=== PATIENT | male | born 1975 | race Hispanic/Latino ===

== ENCOUNTER 2019-03-31 21:35 | Emergency (ER) | payer SELFPAY ==
[~2019-03-31] VITALS: Ht 175.3 cm; Wt 74.8 kg
[~2019-03-31 21:35] MED LIST: IMITREX25 MG PO; OMEPRAZOLE40 MG PO; Z IMITREX
--- OUTSIDE RECORDS SUMMARY | 2019-03-31 21:38 | XMS REPORT ---
[facility] Address Unknown Phone Unavailable Care Team Providers Care Religious Education Director Name Role Phone Unavailable Unavailable Payers Payer Name Policy Type Policy Number Effective Date Expiration Date Problems This patient has no known problems. Allergies, Adverse Reactions, Alerts Allergy Name Allergy Type Status Severity Reaction(s) Onset Date Inactive Date Treating Clinician Comments No Known Allergies DA Active U 2017-07-29 00:00:00 Medications This patient has no known medications. Results Test Description Test Time Test Comments Text Results Atomic Results Result Comments URINALYSIS COMPLETE 2019-02-25 17:40:00 UA COLOR (test code=COLU) YELLOW YELLOW UA APPEARANCE (test code=APPU) CLEAR CLEAR UA GLUCOSE DIPSTICK (test code=DGLUU) norm mg/dL NEGATIVE UA BILIRUBIN DIPSTICK (test code=BILU) NEGATIVE mg/dL NEGATIVE UA KETONE DIPSTICK (test code=KETU) neg mg/dL NEGATIVE UA SPECIFIC GRAVITY (test code=SGU) 1.015 1.001-1.035 UA BLOOD DIPSTICK (test code=SONIA) neg Dale/uL NEGATIVE UA PH DIPSTICK (test code=GEE) 6.0 5.0-8.0 UA PROTEIN DIPSTICK (test code=PROU) 30 (1+) mg/dL Neg-15 UA UROBILINIOGEN DIPSTICK (test code=URO) norm mg/dL 0.0-0.2 UA NITRITE DIPSTICK (test code=MC) NEGATIVE NEGATIVE UA LEUKOCYTE ESTERASE DIPSTICK (test code=LEUU) neg uL NEGATIVE UA WBC (test code=WBCU) 0-5 per HPF 0-5 UA RBC (test code=RBCU) 0-2 per HPF 0-5 UA EPITHELIAL CELLS (test code=EPIU) Few (2-5/hpf) per HPF Few UA BACTERIA (test code=BACU) MODERATE per HPF NONE UA COARSE GRANULAR CAST (test code=CGU) 0-1 per LPF NONE URINALYSIS W/O [id number] 17:40:00* Test Item Value Reference Range Comments UA MICROSCOPIC NEEDED? (test code=UAMICRO) YES DRUGS OF ABUSE SCREEN [id number] 17:40:00* Test Item Value Reference Range Comments URN COCAINE (test code=COCAURN) NEGATIVE NEGATIVE URN CANNABINOIDS (test code=CANNABURN) NEGATIVE NEGATIVE URN AMPHETAMINE (test code=AMPHETURN) NEGATIVE NEGATIVE URN BARBITURATE (test code=BARBITURN) NEGATIVE NEGATIVE URN BENZODIAZEPINE (test code=BENZOURN) NEGATIVE NEGATIVE URN OPIATES (test code=OPIATURN) NEGATIVE NEGATIVE URN PHENCYCLIDINE (PCP) (test code=PHENCURN) NEGATIVE NEGATIVE URINALYSIS [id number] 17:39:00* Test Item Value Reference Range Comments UA COLOR (test code=COLU) YELLOW YELLOW UA APPEARANCE (test code=APPU) CLEAR CLEAR UA GLUCOSE DIPSTICK (test code=DGLUU) norm mg/dL NEGATIVE UA BILIRUBIN DIPSTICK (test code=BILU) NEGATIVE mg/dL NEGATIVE UA KETONE DIPSTICK (test code=KETU) neg mg/dL NEGATIVE UA SPECIFIC GRAVITY (test code=SGU) 1.015 1.001-1.035 UA BLOOD DIPSTICK (test code=SONIA) neg Dale/uL NEGATIVE UA PH DIPSTICK (test code=GEE) 6.0 5.0-8.0 UA PROTEIN DIPSTICK (test code=PROU) 30 (1+) mg/dL Neg-15 UA UROBILINIOGEN DIPSTICK (test code=URO) norm mg/dL 0.0-0.2 UA NITRITE DIPSTICK (test code=MC) NEGATIVE NEGATIVE UA LEUKOCYTE ESTERASE DIPSTICK (test code=LEUU) neg uL NEGATIVE UA WBC (test code=WBCU) 0-5 per HPF 0-5 UA RBC (test code=RBCU) 0-2 per HPF 0-5 UA EPITHELIAL CELLS (test code=EPIU) Few (2-5/hpf) per HPF Few UA BACTERIA (test code=BACU) MODERATE per HPF NONE UA COARSE GRANULAR CAST (test code=CGU) 0-1 per LPF NONE URINALYSIS W/O [id number] 17:39:00* Test Item Value Reference Range Comments UA MICROSCOPIC NEEDED? (test code=UAMICRO) YES DRUGS OF ABUSE SCREEN [id number] 17:39:00* Test Item Value Reference Range Comments URN COCAINE (test code=COCAURN) NEGATIVE URN CANNABINOIDS (test code=CANNABURN) NEGATIVE URN AMPHETAMINE (test code=AMPHETURN) NEGATIVE URN BARBITURATE (test code=BARBITURN) NEGATIVE URN BENZODIAZEPINE (test code=BENZOURN) NEGATIVE URN OPIATES (test code=OPIATURN) NEGATIVE URN PHENCYCLIDINE (PCP) (test code=PHENCURN) NEGATIVE URINALYSIS [id number] 17:30:00* Test Item Value Reference Range Comments UA COLOR (test code=COLU) YELLOW YELLOW UA APPEARANCE (test code=APPU) CLEAR CLEAR UA GLUCOSE DIPSTICK (test code=DGLUU) norm mg/dL NEGATIVE UA BILIRUBIN DIPSTICK (test code=BILU) NEGATIVE mg/dL NEGATIVE UA KETONE DIPSTICK (test code=KETU) neg mg/dL NEGATIVE UA SPECIFIC GRAVITY (test code=SGU) 1.015 1.001-1.035 UA BLOOD DIPSTICK (test code=SONIA) neg Dale/uL NEGATIVE UA PH DIPSTICK (test code=GEE) 6.0 5.0-8.0 UA PROTEIN DIPSTICK (test code=PROU) 30 (1+) mg/dL Neg-15 UA UROBILINIOGEN DIPSTICK (test code=URO) norm mg/dL 0.0-0.2 UA NITRITE DIPSTICK (test code=MC) NEGATIVE NEGATIVE UA LEUKOCYTE ESTERASE DIPSTICK (test code=LEUU) neg uL NEGATIVE UA WBC (test code=WBCU) per HPF 0-5 UA RBC (test code=RBCU) per HPF 0-5 UA EPITHELIAL CELLS (test code=EPIU) per HPF Few UA BACTERIA (test code=BACU) per HPF NONE URINALYSIS W/O [id number] 17:30:00* Test Item Value Reference Range Comments UA MICROSCOPIC NEEDED? (test code=UAMICRO) YES DRUGS OF ABUSE SCREEN [id number] 17:30:00* Test Item Value Reference Range Comments URN COCAINE (test code=COCAURN) NEGATIVE URN CANNABINOIDS (test code=CANNABURN) NEGATIVE URN AMPHETAMINE (test code=AMPHETURN) NEGATIVE URN BARBITURATE (test code=BARBITURN) NEGATIVE URN BENZODIAZEPINE (test code=BENZOURN) NEGATIVE URN OPIATES (test code=OPIATURN) NEGATIVE URN PHENCYCLIDINE (PCP) (test code=PHENCURN) NEGATIVE URINALYSIS [id number] 17:30:00* Test Item Value Reference Range Comments UA COLOR (test code=COLU) YELLOW YELLOW UA APPEARANCE (test code=APPU) CLEAR CLEAR UA GLUCOSE DIPSTICK (test code=DGLUU) norm mg/dL NEGATIVE UA BILIRUBIN DIPSTICK (test code=BILU) NEGATIVE mg/dL NEGATIVE UA KETONE DIPSTICK (test code=KETU) neg mg/dL NEGATIVE UA SPECIFIC GRAVITY (test code=SGU) 1.015 1.001-1.035 UA BLOOD DIPSTICK (test code=SONIA) neg Dale/uL NEGATIVE UA PH DIPSTICK (test code=GEE) 6.0 5.0-8.0 UA PROTEIN DIPSTICK (test code=PROU) 30 (1+) mg/dL Neg-15 UA UROBILINIOGEN DIPSTICK (test code=URO) norm mg/dL 0.0-0.2 UA NITRITE DIPSTICK (test code=MC) NEGATIVE NEGATIVE UA LEUKOCYTE ESTERASE DIPSTICK (test code=LEUU) neg uL NEGATIVE UA WBC (test code=WBCU) per HPF 0-5 UA RBC (test code=RBCU) per HPF 0-5 UA EPITHELIAL CELLS (test code=EPIU) per HPF Few UA BACTERIA (test code=BACU) per HPF NONE URINALYSIS W/O [id number] 17:30:00* Test Item Value Reference Range Comments UA MICROSCOPIC NEEDED? (test code=UAMICRO) YES DRUGS OF ABUSE SCREEN [id number] 17:30:00* Test Item Value Reference Range Comments URN COCAINE (test code=COCAURN) NEGATIVE URN CANNABINOIDS (test code=CANNABURN) NEGATIVE URN AMPHETAMINE (test code=AMPHETURN) NEGATIVE URN BARBITURATE (test code=BARBITURN) NEGATIVE URN BENZODIAZEPINE (test code=BENZOURN) NEGATIVE URN OPIATES (test code=OPIATURN) NEGATIVE URN PHENCYCLIDINE (PCP) (test code=PHENCURN) NEGATIVE BASIC METABOLIC [id number] 17:04:00* Test Item Value Reference Range Comments SODIUM (test code=NA) 142 mmol/L 136-145 POTASSIUM (test code=K) 3.9 mmol/L 3.5-5.1 CHLORIDE (test code=CL) 105 mmol/L 101-109 CARBON DIOXIDE (test code=CO2) 26.9 mmol/L 21-32 ANION GAP (test code=GAP) 14 mmol/L 10-20 GLUCOSE (test code=GLU) 97 mg/dL 74-106 BLOOD UREA NITROGEN (test code=BUN) 8 mg/dL 3-21 GLOMERULAR FILTRATION RATE (test code=GFR) > 60 mL/min >=60 Estimated GFR by using Modified MDRD formula.Chronic kidney disease is defined as either kidney damageor GFR <60 mL/min/1.73 m2 for >3 months. CREATININE (test code=CREAT) 0.88 mg/dL 0.55-1.3 BUN/CREATININE RATIO (test code=BUN/CREA) 9.1 10-20 CALCIUM (test code=CA) 8.9 mg/dL 8.4-10.2 CBC W/AUTO [id number] 16:52:00* Test Item Value Reference Range Comments WHITE BLOOD CELL (test code=WBC) 8.2 K/mm3 4.5-12.5 RED BLOOD CELL (test code=RBC) 5.32 mill/mm3 4.0-5.8 HEMOGLOBIN (test code=HGB) 16.3 gram/dL 13.0-17.5 HEMATOCRIT (test code=HCT) 50.1 % 42.0-52.0 MEAN CELL VOLUME (test code=MCV) 94.2 fL 80-98 MEAN CELL HGB (test code=MCH) 30.6 picogram 27.0-33.0 MEAN CELL HGB CONCETRATION (test code=MCHC) 32.5 gram/dL 33.0-36.0 RED CELL DISTRIBUTION WIDTH (test code=RDW) 12.7 % 11.6-16.2 RED CELL DISTRIBUTION WIDTH SD (test code=RDW-SD) 45.0 fL 37.0-51.0 PLATELET COUNT (test code=PLT) 205 K/mm3 150-450 MEAN PLATELET VOLUME (test code=MPV) 9.1 fL 6.7-11.0 NEUTROPHIL % (test code=NT%) 83.2 % 39.0-69.0 LYMPHOCYTE % (test code=LY%) 8.5 % 25.0-55.0 MONOCYTE % (test code=MO%) 6.8 % 0.0-10.0 EOSINOPHIL % (test code=EO%) 1.0 % 0.0-5.0 BASOPHIL % (test code=BA%) 0.4 % 0.0-1.0 NEUTROPHIL # (test code=NT#) 6.83 K/mm3 1.8-7.7 LYMPHOCYTE # (test code=LY#) 0.70 K/mm3 1.0-5.0 MONOCYTE # (test code=MO#) 0.56 K/mm3 0-0.8 EOSINOPHIL # (test code=EO#) 0.08 K/mm3 0.0-0.5 BASOPHIL # (test code=BA#) 0.03 K/mm3 0.0-0.2 MANUAL DIFF REQUIRED (test code=MDIFF) NO - CT MAXIFAC W/O [id number] 22:53:00 [facility] [place] [facility] 1975 Age/S: 43 / M [address] [facility] Unit #: [id number] Loc: [place] [address] Phys: Mikal Solorio MD Acct: [id number] Dis Date: Status: REG ER PHONE #: [phone] Exam Date: 12/10/2018 2241 FAX #: [phone] Reason: Pain s/p Fall EXAMS: CPT CODE: [id number] CT MAXIFAC W/O CNT 73363 EXAM: - CT HEAD/BRAIN W/O CONT, - CT MAXIFAC W/O CNT HISTORY: Fall. Headache. TECHNIQUE: Axial tomograms through the brain were obtained without intravenous contrast. This exam was performed according to our departmental dose-optimization program, which includes automated exposure control, adjustment of the mA and/or kV according to patient size and/or use of iterative reconstruction technique. COMPARISON: January 08, 2014. FINDINGS: There is no intracranial hemorrhage, mass, or mass effect. The ventricular system and sulci are age-appropriate. There is no evidence of acute infarction. The osseous structures and orbits, show no significant abnormalities. The visualized sinuses are relatively clear. The soft tissues are unremarkable. IMPRESSION: No acute intracranial abnormality with no evidence of intracranial hemorrhage. EXAM: - CT MAXIFAC W/O CNT HISTORY: Fall. TECHNIQUE: Helical axial images were obtained through the maxillofacial sinuses and orbits without IV contrast. Sagittal and coronal multiplanar reconstructions were performed. This exam was performed according to our departmental dose-optimization program, which includes automated exposure control, adjustment of the mA and/or kV according to patient size and/or use of iterative reconstruction technique. COMPARISON: January 08, 2014 . FINDINGS: Globes are intact. Intraorbital contents are normal. There is chronic PAGE 1 Signed Report (CONTINUED) Name: EL ROSS aging [facility] : 1975 Age/S: 43 / M [address] [facility] Unit #: [id number] Loc: [place] [address] Phys: Mikal Solorio MD Acct: [id number] Dis Date: Status: REG ER PHONE #: [phone] Exam Date: 12/10/2018 2241 FAX #: [phone] Reason: Pain s/p Fall EXAMS: CPT CODE: [id number] CT MAXIFAC W/O CNT [address]1998 < Continued> depression of the nasal bone anteriorly. Clinical correlation is suggested. No acute fracture of the orbital rims or morrell, sinus morrell, zygomatic arches, nasal bone, anterior nasal spine, or mandible. Paranasal sinuses are clear. IMPRESSION: No definite acute fracture of the facial bones or orbits. at 7653 Reported and signed by: Francis Smart MD CC: Mikal Solorio MD Technologist:TIMO LARES RT(R),CT CTDI: DLP: Trnscb Date/Time: 12/10/2018 (4693) [email or web address] Orig Print D/T: S: 12/10/2018 (2256) PAGE 2 Signed Report - CT HEAD/BRAIN W/O [id number] 22:53:00 Name: EL ROSS Imaging [facility] [place] : 1975 Age/S: 43 / M [address] [facility] Unit #: [id number] Loc: [place] [address] Phys: Mikal Solorio MD Acct: [id number] Dis Date: Status: REG ER PHONE #: [phone] Exam Date: 12/10/2018 2241 FAX #: [phone] Reason: Headache EXAMS: CPT CODE: [id number] CT HEAD/BRAIN W/O CONT 29999 EXAM: - CT HEAD/BRAIN W/O CONT, - CT MAXIFAC W/O CNT HISTORY: Fall. Headache. TECHNIQUE: Axial tomograms through the brain were obtained without intravenous contrast. This exam was performed according to our departmental dose-optimization program, which includes automated exposure control, adjustment of the mA and/or kV according to patient size and/or use of iterative reconstruction technique. COMPARISON: January 08, 2014. FINDINGS: There is no intracranial hemorrhage, mass, or mass effect. The ventricular system and sulci are age-appropriate. There is no evidence of acute infarction. The osseous structures and orbits, show no significant abnormalities. The visualized sinuses are relatively clear. The soft tissues are unremarkable. IMPRESSION: No acute intracranial abnormality with no evidence of intracranial hemorrhage. EXAM: - CT MAXIFAC W/O CNT HISTORY: Fall. TECHNIQUE: Helical axial images were obtained through the maxillofacial sinuses and orbits without IV contrast. Sagittal and coronal multiplanar reconstructions were performed. This exam was performed according to our departmental dose-optimization program, which includes automated exposure control, adjustment of the mA and/or kV according to patient size and/or use of iterative reconstruction technique. COMPARISON: January 08, 2014 . FINDINGS: Globes are intact. Intraorbital contents are normal. There is chronic PAGE 1 Signed Report (CONTINUED) Name: EL ROSS Im aging [facility] : 1975 Age/S: 43 / M [address] [place] [address] Unit #: [id number] Loc: [place] [address] Phys: Mikal Solorio MD Acct: [id number] Dis Date: Status: REG ER PHONE #: [phone] Exam Date: 12/10/2018 2241 FAX #: [phone] Reason: Headache EXAMS: CPT CODE: [id number] CT HEAD/BRAIN W/O CONT 78034 < Continued> depression of the nasal bone anteriorly. Clinical correlation is suggested. No acute fracture of the orbital rims or morrell, sinus morrell, zygomatic arches, nasal bone, anterior nasal spine, or mandible. Paranasal sinuses are clear. IMPRESSION: No definite acute fracture of the facial bones or orbits. at 3003 Reported and signed by: Francis Smart MD CC: Mikal Solorio MD Technologist:TIMO LARES RT(R),CT CTDI: DLP: Trnscb Date/Time: 12/10/2018 (922) [email or web address] Orig Print D/T: S: 12/10/2018 (5126) PAGE 2 Signed Report - XR CHEST 2 [id number] 18:41:00 Name: EL ROSS [facility] : 1975 Age/S:43 /M [address] [facility] Unit#:[id number] Loc: [place] [address] Phys: Marci Gregory NP Dis Date: PHONE #: [phone] Status: REG ER FAX #: [phone] Exam Date: 08/07/2018 Reason: cough EXAMS: CPT CODE: [id number] XR CHEST 2 V 08193 REASON FOR EXAM: cough Exam Order Date: 08/07/2018 6:25 PM Ordering Rene: Marci Gregory NP PROCEDURE: - XR CHEST 2 V COMPARISON: FINDINGS: PA and lateral views of the chest show clear lungs without evidence of consolidation. No evidence of effusion. The heart size is within normal limits. Pulmonary vasculatures are unremarkable. The osseous structures are grossly intact. IMPRESSION: No active disease. at 1841 Reported and signed by: Cleveland Guallpa M.D. CC: Marci Gregory NP Technologist: Christel Gaffney Trnscrpt Data: 08/07/2018 (1840) CaityL Orig Print D/T: S: 08/07/2018 (9874) PAGE 1 Signed Report
[2019-03-31] MEDS ORDERED: SUMATRIPTAN SUCCINATE 6 MG/0.5 ML VIAL SC ONE (22:15)
[2019-03-31] MEDS ORDERED: METOCLOPRAMIDE HCL 10 MG TAB PO ONE (23:00)
[2019-03-31] MEDS ORDERED: ACETAMIN/BUTALBITAL/CAFFEINE TAB PO ONE (23:00)
[2019-04-01 00:16] VITALS: BP 148/95
[2019-04-01] MEDS ORDERED: IMITREX100 MG PO (00:26)
[2019-04-01] MEDS ORDERED: FIORICET 50-301 EACH PO (00:26)
== END 2019-04-01 00:33 | disposition home or self-care (01) ==
LOC: ER 21:35
DX: G43.011 Migraine without aura, intractable, with status migrainosus (principal)
CPT/HCPCS: 99283; J8597